=== PATIENT | female | born 1985 | race Caucasian/White ===

== ENCOUNTER 2017-01-09 23:06 | Emergency (ER) | payer SELFPAY ==
--- NOTE | 2017-01-09 23:43 | EDPHY ---
H & P Stated Complaint: c/o upper abd pain/n/d x 3 days, says pain increasing Time Seen by Provider: 01/09/17 23:43 HPI/ROS: HPI: This is a 31-year-old female who presents with Chief Complaint:c/o upper abd pain/n/d x 3 days, says pain increasing Location: Epigastric Quality: Sharp pain Duration: 3 days Signs and Symptoms: No fever, no chills, no vomiting, no diarrhea, no chest pain, no shortness of breath, no injury Timing: Sudden, worsening Severity: 11/19 Context: Patient complains of upper abdominal pain, severe in nature, nonradiating accompanied by nausea but no vomiting. Denies fever/chills/ diarrhea/chest pain/shortness of breath. Patient has a history of cholecystectomy hysterectomy. Has had a poor appetite the last few days. Has not tried anything for the symptoms. Had a bowel movement yesterday. Passing flashes. Denies any intolerance to spicy/fatty/fried foods. Modifying Factors: No medications tried Comment: ROS: Constitutional: No fever, no chills, no weight loss Eyes: No blurred vision Respiratory: No shortness of breath, no cough Cardiovascular: No chest pain Gastrointestinal: + nausea, no vomiting, no diarrhea Genitourinary: No dysuria Extremities: No myalgias Neurologic: No weakness, no numbness Skin: No rashes Hematologic: No bruising, no bleeding MEDICAL/SURGICAL/SOCIAL HISTORY: Medical history: Generally healthy Surgical history: hysterectomy, tonisllectomy, cholecystectomy Social history: In relationship CONSTITUTIONAL: Dramatic moderate distress white female, significant other at bedside, awake and alert HEENT: Atraumatic and normocephalic, PERRL, EOMI. Tympanic membranes clear. Oropharynx clear, no exudate and moist pink mucosa. Airway patent. No lymphadenopathy. No meningismus. Cardiovascular: Normal S1/S2, regular rate, regular rhythm, without murmur rub or gallop. PULMONARY/CHEST: Symmetrical and left lower rib reproducible tenderness. Clear to auscultation bilaterally. Good air movement. No accessory muscle usage. ABDOMEN: Soft, nondistended, moderate epigastric tenderness, no rebound, + guarding, no peritoneal signs, no masses or organomegaly. No CVAT. EXTREMITIES: 2/2 pulses, no deformities, no clubbing, no cyanosis or edema. NEUROLOGICAL: no focal neuro deficits. GCS 15. SKIN: Warm and dry, no erythema. no rash. Good capillary refill. Source: Patient - Medical/Surgical History Hx Asthma: No Hx Chronic Respiratory Disease: No Hx Diabetes: No Hx Cardiac Disease: No Hx Renal Disease: No Hx Cirrhosis: No Hx Alcoholism: No Hx HIV/AIDS: No Hx Splenectomy or Spleen Trauma: No Other PMH: hysterectomy, tonisllectomy, cholecystectomy - Social History Smoking Status: Current every day smoker Constitutional: Initial Vital Signs Temperature (C) 37.1 C 01/09/17 23:11 Heart Rate 117 H 01/09/17 23:11 Respiratory Rate 18 01/09/17 23:11 Blood Pressure 133/89 H 01/09/17 23:11 O2 Sat (%) 98 01/09/17 23:11 O2 Delivery Mode Room Air Allergies/Adverse Reactions: aloe vera Allergy (Verified 01/09/17 23:14) Penicillins Allergy (Verified 01/09/17 23:14) tree nut Allergy (Verified 01/09/17 23:14) Home Medications: Medication Instructions Recorded Ibuprofen 01/09/17 Tylenol 01/09/17 Pantoprazole Sodium [Protonix 40mg 40 mg PO DAILY #10 tab 01/10/17 (*)] Sucralfate [Carafate 1 GM (*)] 1 gm PO ACHS #28 tab 01/10/17 Medical Decision Making - Diagnostics EKG Interpretation: 12 lead EKG: Indication: Abdominal pain Rhythm: Normal sinus rhythm, rate of 83 beats per minute [place]: Normal Intervals: Normal QRS: Normal ST segments: Normal INTERPRETATION: Normal EKG. No acute ischemic changes. The 12 lead EKG was interpreted by myself and with attending. Imaging Results: Imaging Impressions Ribs w/Chest X-Ray 01/09/17 23:55 Impression: No acute abnormality identified. ED Course/Re-evaluation: Rib and chest x-ray, CT abdomen and pelvis scan, Labs reviewed: No leukocytosis/anemia/acute kidney injury. LFTs and D-dimer within normal limits Called by radiologist and CT scan shows no significant acute intra-abdominal process After giving Dilaudid, Zofran, Haldol adequate pain relief Chest/rib x-ray my read shows no fracture/pneumothorax/opacity/effusion At this point suspect gastritis versus peptic ulcer disease; advised patient to follow up with GI for EGD outpatient Patient given GI cocktail and IV Protonix. Passed p.o. trial prior to discharge Differential Diagnosis: Abdominal pain including but not limited to appendicitis, cholecystitis, gastritis and urinary tract infection. - Data Points Laboratory Results: Laboratory Results 01/09/17 00:06 01/09/17 00:06 01/09/17 01/09/17 01/09/17 00:06 00:06 00:06 WBC RBC Hgb Hct MCV MCH MCHC RDW Plt Count MPV Neut % (Auto) Lymph % (Auto) [place] % (Auto) Eos % (Auto) Baso % (Auto) Nucleat RBC Rel Count Absolute Neuts (auto) Absolute Lymphs (auto) Absolute Monos (auto) Absolute Eos (auto) Absolute Basos (auto) Absolute Nucleated RBC Immature Gran % Immature Gran # D-Dimer < 0.27 ug/mLFEU ug/mLFEU (0.00-0.50) Sodium 142 mEq/L mEq/L (134-144) Potassium 3.4 mEq/L L mEq/L (3.5-5.2) Chloride 109 mEq/L mEq/L (97-110) Carbon Dioxide 21 mEq/l L mEq/l (22-31) Anion Gap 12 mEq/L mEq/L (8-16) BUN 11 mg/dL mg/dL (7-23) Creatinine 0.6 mg/dL mg/dL (0.6-1.0) Estimated GFR > 60 Glucose 107 mg/dL H mg/dL (70-100) Calcium 9.1 mg/dL mg/dL (8.5-10.4) Total Bilirubin 0.3 mg/dL mg/dL (0.1-1.4) Conjugated Bilirubin 0.3 mg/dL mg/dL (0.0-0.5) Unconjugated Bilirubin 0.0 mg/dL mg/dL (0.0-1.1) AST 11 IU/L L IU/L (14-46) ALT 20 IU/L IU/L (9-52) Alkaline Phosphatase 64 IU/L IU/L (38-126) Total Protein 6.8 g/dL g/dL (6.3-8.2) Albumin 4.3 g/dL g/dL (3.5-5.0) Lipase 37 IU/L IU/L (23-300) Beta HCG, Qual NEGATIVE 01/09/17 00:06 WBC 9.15 10^3/uL 10^3/uL (3.80-9.50) RBC 4.50 10^6/uL 10^6/uL (4.18-5.33) Hgb 14.2 g/dL g/dL (12.6-16.3) Hct 40.6 % % (38.0-47.0) MCV 90.2 fL fL (81.5-99.8) MCH 31.6 pg pg (27.9-34.1) MCHC 35.0 g/dL g/dL (32.4-36.7) RDW 12.0 % % (11.5-15.2) Plt Count 204 10^3/uL 10^3/uL (150-400) MPV 11.2 fL fL (8.7-11.7) Neut % (Auto) 67.9 % % (39.3-74.2) Lymph % (Auto) 27.1 % % (15.0-45.0) [place] % (Auto) 3.9 % L % (4.5-13.0) Eos % (Auto) 0.5 % L % (0.6-7.6) Baso % (Auto) 0.3 % % (0.3-1.7) Nucleat RBC Rel Count 0.0 % % (0.0-0.2) Absolute Neuts (auto) 6.20 10^3/uL 10^3/uL (1.70-6.50) Absolute Lymphs (auto) 2.48 10^3/uL 10^3/uL (1.00-3.00) Absolute Monos (auto) 0.36 10^3/uL 10^3/uL (0.30-0.80) Absolute Eos (auto) 0.05 10^3/uL 10^3/uL (0.03-0.40) Absolute Basos (auto) 0.03 10^3/uL 10^3/uL (0.02-0.10) Absolute Nucleated RBC 0.00 10^3/uL 10^3/uL (0-0.01) Immature Gran % 0.3 % % (0.0-1.1) Immature Gran # 0.03 10^3/uL 10^3/uL (0.00-0.10) D-Dimer Sodium Potassium Chloride Carbon Dioxide Anion Gap BUN Creatinine Estimated GFR Glucose Calcium Total Bilirubin Conjugated Bilirubin Unconjugated Bilirubin AST ALT Alkaline Phosphatase Total Protein Albumin Lipase Beta HCG, Qual Medications Given: Discontinued Medications Haloperidol Lactate (Haldol Injection) 2.5 mg IVP EDNOW ONE Stop: 01/10/17 01:15 Last Admin: 01/10/17 01:27 Dose: 2.5 mg Hydromorphone HCl (Dilaudid) 1 mg IVP EDNOW ONE Stop: 01/09/17 23:54 Last Admin: 01/10/17 00:09 Dose: 1 mg Sodium Chloride (Ns) 1,000 mls @ 0 mls/hr IV EDNOW ONE; Wide Open PRN Reason: Protocol Stop: 01/09/17 23:54 Last Admin: 01/10/17 00:07 Dose: 1,000 mls Ondansetron HCl (Zofran) 4 mg IVP EDNOW ONE Stop: 01/09/17 23:54 Last Admin: 01/10/17 00:07 Dose: 4 mg Departure - Departure Disposition: Home, Routine, Self-Care Clinical Impression: Gastritis Qualifiers: Gastritis type: unspecified gastritis Chronicity: acute Gastritis bleeding: without bleeding Qualified Code(s): K29.00 - Acute gastritis without bleeding Condition: Good Instructions: Gastritis (ED), Diet for Stomach Ulcers and Gastritis (ED) Additional Instructions: Please observe bland diet. Take Protonix daily. Call Gastroenterology for follow-up outpatient to evaluate for gastritis, peptic ulcer disease. You may benefit from an EGD outpatient. Referrals: Murali Chery MD [Medical Doctor] - As per Instructions Prescriptions: Pantoprazole Sodium [Protonix 40mg (*)] 40 mg PO DAILY #10 tab Sucralfate [Carafate 1 GM (*)] 1 gm PO ACHS #28 tab
[2017-01-09] MEDS ORDERED: HYDROmorphONE/DILAUDID 1 MG/ML INJ IVP ONE (23:53)
[2017-01-09] MEDS ORDERED: ONDANSETRON 4 MG/2 ML VIAL IVP ONE (23:53)
[2017-01-09] MEDS ORDERED: NS 1,000 ML IV ONE (23:53)
[2017-01-10 00:14] LABS: % IMMATURE GRANULYOCYTES 0.3 % (0.0-1.1); ABSOLUTE IMMATURE GRANULOCYTES 0.03 10^3/uL (0.00-0.10); ADD DIFF? NO; ADD MORPH? NO; ADD SCAN? NO; ATYPICAL LYMPHOCYTE FLAG 0 (0-99); FRAGMENT RBC FLAG 0 (0-99); HEMATOCRIT 40.6 % (38.0-47.0); HEMOGLOBIN 14.2 g/dL (12.6-16.3); LEFT SHIFT FLG 0 (0-99); LIPEMIA HEMOLYSIS FLAG 90 (0-99); MEAN CELL HEMOGLOBIN 31.6 pg (27.9-34.1); MEAN CELL VOLUME 90.2 fL (81.5-99.8); MEAN PLATELET VOLUME 11.2 fL (8.7-11.7); PLATELET CLUMPS FLAG 0 (0-99); PLATELET COUNT 204 10^3/uL (150-400)
[2017-01-10 00:30] LABS: ALANINE AMINOTRANSFERASE 20 IU/L (9-52); ALBUMIN 4.3 g/dL (3.5-5.0); ALKALINE PHOSPHATASE 64 IU/L (38-126); ANION GAP 12 mEq/L (8-16); ASPARTATE AMINOTRANSFERASE 11 IU/L (14-46); BILIRUBIN,TOTAL 0.3 mg/dL (0.1-1.4); BILIRUBIN-CONJUGATED 0.3 mg/dL (0.0-0.5); CALCIUM 9.1 mg/dL (8.5-10.4); CARBON DIOXIDE 21 mEq/l (22-31); CHLORIDE 109 mEq/L (97-110); CREATININE 0.6 mg/dL (0.6-1.0); GLOMERULAR FILTRATION RATE > 60; GLUCOSE 107 mg/dL (70-100); POTASSIUM 3.4 mEq/L (3.5-5.2); SODIUM 142 mEq/L (134-144); TOTAL PROTEIN 6.8 g/dL (6.3-8.2)
[2017-01-10] MEDS ORDERED: IOPAMIDOL (ISOVUE-300) 100 ML BTL ONE (00:55)
--- NOTE | 2017-01-10 00:56 | CPEKG ---
Heart Rate: 83 RR Interval: 723 P-R Interval: 136 QRSD Interval: 82 QT Interval: 392 QTC Interval: 461 P [place]: 52 QRS [place]: 67 T Wave [place]: 22 EKG Severity - NORMAL ECG - EKG Impression: SINUS RHYTHM Electronically Signed By: Yuridia Mccallum 10-Jan-2017 14:26:42
[2017-01-10] MEDS ORDERED: HALOPERIDOL LACT 5 MG/ML INJ IVP ONE (01:14)
[2017-01-10] MEDS ORDERED: LIDOCAINE 2% VISCOUS 15 ML UDCUP PO ONE (01:58)
[2017-01-10] MEDS ORDERED: MAG HYDROX/AL HYDROX/SIMETH 30 ML UDCUP PO ONE (01:58)
[2017-01-10] MEDS ORDERED: HYOSCYAMINE SULFATE 0.125 MG TAB PO ONE (01:58)
[2017-01-10] MEDS ORDERED: PANTOPRAZOLE SODIUM 40 MG in NS 100 ML IV ONE (01:59)
[2017-01-10] MEDS ORDERED: NS 1,000 ML IV ONE (02:20)
[2017-01-10 03:01] LABS: COLOR YELLOW; LEUKOCYTE ESTERASE,URINE NEGATIVE (NEGATIVE); NITRITE,URINE NEGATIVE (NEGATIVE)
[2017-01-10] MEDS ORDERED: HYDROCOD/APAP 5/325 PREPACK#6 BTL TAKEHOME ONE (03:54)
[2017-01-10 04:08] VITALS: BP 145/97; PULSE 83; RESP 16; TEMP 98.2; O2SAT 97
== END 2017-01-10 04:08 | disposition home or self-care (01) ==
LOC: EEVIPCON 23:06
DX: K29.00 Acute gastritis without bleeding (principal); F17.200 Nicotine dependence, unspecified, uncomplicated; E86.9 Volume depletion, unspecified; Z90.49 Acquired absence of other specified parts of digestive tract
CPT/HCPCS: 96365; J1170; J2405; Q9967